=== PATIENT | male | born 1995 | race Two or more races ===

== ENCOUNTER 2024-08-29 10:50 | Emergency (ER) | payer MEDICAID ==
[~2024-08-29] VITALS: Ht 172.7 cm; Wt 61.4 kg
[2024-08-29 10:56] VITALS: BP 113/70; PULSE 97; RESP 16; TEMP 98.6; O2SAT 96
[2024-08-29] MEDS: dexamethasone sod phosphate 10mg/ml inj PO STA (11:08)
[2024-08-29] MEDS: proparacaine 0.5% ophthalmic drops 15ml EACHEYE ONE (11:10)
--- NOTE | 2024-08-29 11:29 | Physician Documentation ---
History of Present Illness ~ Chief Complaint: Eye Pain Stated Complaint: EYE PAIN Time Seen by MD: 11:01 HPI 28 Year old male with a history of autism presents via [facility] acute left eye pain. Patient apparently woke up with excruciating left eye pain. There was no previous trauma. Patient was seen in the urgent care in evaluated via fluorescein Wood's lamp and proparacaine and prescribed ofloxacin. For unknown reasons to the patient and/or caregiver they were sent to the ER to seek ophthalmology Day of Onset: August 29, 2024 Medication Reconciliation Allergies: Coded Allergies: No Known Allergies (Unverified , 08/29/24) Scheduled Ofloxacin Opth.* (Ofloxacin Opth.*), 1 DROP LEFTEYE Q6H Review of Systems All Other Systems at this time: Reviewed and Negative Physical Exam Vital Signs: Temperature: 98.6, Source: Temporal, Heart Rate: 97, Respiratory Rate: 16, BP: 113/70, Pulse Oximetry: 96, Weight: 61.360 Physical Exam General: Alert, no apparent distress. HEENT: PERRL, EOMI, no injection, moist mucous membranes. No injection of the cornea or sclera. soft via palpation Neck: Full range of motion. Neurologic: Oriented x4. Psychiatric: Normal mood and affect. Skin: Normal color, warm and dry. No edema, no ecchymosis. Progress Results/Orders Results/Orders Completed Orders - PERRY FLEMING NP Dexamethasone Inj (Decadron 10mg/Ml Inj) (08/29/24 11:03) Proparacaine Ophth Solution (Alcaine Oph (08/29/24 11:10) Vital Signs 08/29/24 10:56 Temp 98.6 Pulse 97 Resp 16 B/P (MAP) 113/70 Pulse Ox 96 Medical Decision Making Findings Dr. Tejeda evaluated this patient completed a fluorescein test via Wood's lamp after proparacaine was infused This made note of a small punctate well healing corneal abrasion, no evidence of foreign body. He was fully irrigated Departure Disposition: 01 HOME / SELF CARE / HOMELESS Impression: Primary Impression: Corneal abrasion Additional Impression: Foreign body in site on external eye Condition: Stable Discharge Instructions: Corneal Abrasion Referrals: NO PRIMARY CARE PROVIDER (PCP) Prescriptions Ofloxacin Opth.* (Ofloxacin Opth.*) 5 Ml Bottle 1 DROP LEFTEYE Q6H for 7 Days, #5 ML Prov: PERRY FLEMING [employer] 08/29/24 Education Educated: Patient Educated regarding: diagnosis Signature Scribe Signature: g Attestation: The note accurately reflects work and decisions made by me.Perry Fleming - [employer] 08/29/24 18:11 PERRY FLEMING NP August 29, 2024 11:29
[2024-08-29] MEDS ORDERED: OFLO5DRO LEFTEYE (11:32)
== END 2024-08-29 11:43 | disposition home or self-care (01) ==
LOC: ER 10:51
DX: T15.02XA Foreign body in cornea, left eye, initial encounter (principal); X58.XXXA Exposure to other specified factors, initial encounter; Y93.89 Activity, other specified; Y92.89 Other specified places as the place of occurrence of the external cause; Y99.8 Other external cause status
CPT/HCPCS: 99283